=== PATIENT | male | born 1970 | race Hispanic/Latino ===

== ENCOUNTER 2025-01-08 00:16 | Emergency (ER) | payer OTHER, MEDICAID ==
[~2025-01-08] VITALS: Ht 185.4 cm; Wt 150.6 kg
[2025-01-08 00:26] LABS: EOSINOPHILS 4.3 % (0-6); HEMATOCRIT 43.7 % (35.0-50.0); HEMOGLOBIN 14.3 g/dL (12.0-18.0); LYMPHOCYTES 32.2 % (24-44); MCHC 32.8 g/dl (30-36); MCV 70.1 fl (81-99); NEUTROPHILS 53.5 % (39-80); PLATELET COUNT 298 K/uL (140-440); RBC 6.24 M/ul (4.3-5.7); RDW 16.2 (10.5-15.0)
[2025-01-08] MEDS ORDERED: HYDROmorphone HCL 1 MG/ML SYR IV ONE (00:30)
[2025-01-08] MEDS ORDERED: LACTATED RINGER'S 1,000 ML IV ONE (00:30)
[2025-01-08] MEDS ORDERED: ondansetron HCL 4 MG/2 ML VIAL IV ONE (00:30)
[2025-01-08 00:41] LABS: ALBUMIN 3.4 g/dL (3.4-5.0); ALBUMIN/GLOBULIN RATIO 0.72 (1.1-2.4); ALCOHOL, MEDICAL <3 ng/dL (<3); ALKALINE PHOSPHATASE 81 U/L (46-116); ALT (SGPT) 74 U/L (14-59); ANION GAP 11.8 (7-21); AST (SGOT) 47 U/L (15-37); BILIRUBIN, TOTAL 0.4 mg/dL (0.2-1.0); BUN/CREATININE RATIO 6.15 (6.0-28.6); CALCIUM 8.6 mg/dL (8.5-10.1); CARBON DIOXIDE 27 mmol/L (21-32); CHLORIDE 104 mmol/L (98-107); GLOMERULAR FILTRATION RATE,EST 64 mL/min (>60); POTASSIUM 3.8 mmol/L (3.5-5.1); PROTEIN, TOTAL 8.1 g/dL (6.4-8.2); UREA NITROGEN 8 mg/dL (7-18)
[2025-01-08 01:10] LABS: ABO A; ANTIBODY SCREEN NEGATIVE; RH POSITIVE
[2025-01-08] MEDS ORDERED: TRAMADOL HCL50 MG PO (02:42)
[2025-01-08 02:52] LABS: BILIRUBIN, URINE NEGATIVE (negative); BLOOD/HGB, URINE NEGATIVE (Negative); KETONE, URINE NEGATIVE (Negative); LEUK ESTERASE, URINE NEGATIVE (negative); NITRITE, URINE NEGATIVE (negative)
[2025-01-08] MEDS ORDERED: TRAMADOL HCL 50 MG HOME.PACK PO ONE (03:00)
[2025-01-08 03:02] LABS: AMPHETAMINES, URINE POSITIVE (NEGATIVE); BARBITURATES, URINE NEGATIVE (NEGATIVE); BENZODIAZEPINE, URINE NEGATIVE (NEGATIVE); BUPRENORPHINE, URINE NEGATIVE (NEGATIVE); CANNABINOID, URINE NEGATIVE (NEGATIVE); COCAINE, URINE NEGATIVE (NEGATIVE); ECSTASY, URINE NEGATIVE (NEGATIVE); FENTANYL, URINE NEGATIVE (NEGATIVE); METHADONE, URINE NEGATIVE (NEGATIVE); OPIATES, URINE NEGATIVE (NEGATIVE); OXYCODONE, URINE NEGATIVE (NEGATIVE); PHENCYCLIDINE, URINE NEGATIVE (NEGATIVE)
[2025-01-08 03:19] VITALS: BP 149/93
== END 2025-01-08 03:20 | disposition home or self-care (01) ==
LOC: ED 00:16
PROVIDERS: Family Medicine
DX: S30.1XXA Contusion of abdominal wall, initial encounter (principal); J45.909 Unspecified asthma, uncomplicated; V89.2XXA Person injured in unspecified motor-vehicle accident, traffic, initial encounter
CPT/HCPCS: 36415; 70450; 71260; 72125; 74177; 80053; 80307; 81003; 83690; 85025; 86850; 86900; 86901; 99284-25; A9270; G0480; J1171; J2405; J7121; Q9967